=== PATIENT | male | born 1970 | race American Indian/Alaskan Native ===

== ENCOUNTER 2016-09-16 11:30 | Inpatient (IN) | payer OTHER ==
[2016-09-08 15:33] VITALS: BMI 31.2
[2016-09-30] MEDS ORDERED: BUPIVACAINE HCL/PF 2.5 MG/ML - 30 ML VIAL IJ ONE (07:01)
[2016-09-30] MEDS ORDERED: THROMBIN (BOVINE) 5,000 UNIT VIAL TP ONE (07:01)
[2016-09-30] MEDS ORDERED: EPINEPHrine 1:1,000 1 MG/1 ML - 30ML VIAL (INJECTION) ONE (07:02)
[2016-09-30] MEDS ORDERED: LIDOCAINE 1%/EPI 1:100000 (20 ML MULTI DOSE VIAL) ONE (07:03)
[2016-09-30] MEDS ORDERED: oxyCODONE HCL 10 MG SUSTAINED ACTING TABLET PO ONE (07:43)
--- NOTE | 2016-09-30 08:01 | HP ---
History & Physical Update - History History: No Change - Physical Physical: No Change - Assessment Assessment: No Change - Plan Plan: No Change
[2016-09-30] MEDS ORDERED: MIDAZOLAM HCL 2 MG/2 ML SINGLE DOSE VIAL ONE ×3 (08:18→10:05)
[2016-09-30] MEDS ORDERED: BUPIVACAINE HCL/PF 0.5% (5MG/ML) 10 ML VIAL ONE (08:22)
[2016-09-30] MEDS ORDERED: ceFAZolin SODIUM 1 GM VIAL ONE (08:53)
[2016-09-30] MEDS ORDERED: LIDOCAINE 1%/EPI 1:100000 (50 ML MULTI DOSE VIAL) INF ONE (09:05)
[2016-09-30] MEDS ORDERED: BUPIVACAINE HCL/PF 0.25% (2.5MG/ML) 10 ML VIAL IJ ONE (10:50)
[2016-09-30] MEDS ORDERED: ONDANSETRON 4 MG/2 ML VIAL IVPB PRN (11:33)
[2016-09-30] MEDS ORDERED: CYCLOBENZAPRINE HCL 10 MG TABLET (FP) PO PRN (11:33)
[2016-09-30] MEDS ORDERED: ACETAMINOPHEN 325 MG TABLET (FP) PO PRN (11:33)
[2016-09-30] MEDS ORDERED: ACETAMINOPHEN 1000 MG/100 ML VIAL (NON FORMULARY) IVPB PRN (11:33)
[2016-09-30] MEDS ORDERED: oxyCODONE HCL 5 MG TABLET PO PRN (11:33)
[2016-09-30] MEDS ORDERED: INSULIN (NOVOLOG) ASPART 100 UNITS/ML 10ML VIAL ONE ×3 (11:45→21:02)
[2016-09-30] MEDS ORDERED: INSULIN SLIDING SCALE (NOVOLOG) 1 VIAL SQ ONE (11:50)
[2016-09-30] MEDS ORDERED: ACETAMINOPHEN 1000 MG/100 ML VIAL (NON FORMULARY) IVPB ONE (12:00)
[2016-09-30] MEDS ORDERED: diazePAM 2 MG TABLET PO ONE ×2 (12:00)
[2016-09-30] MEDS ORDERED: traMADol HCL 50 MG TABLET PO ONE (12:00)
[2016-09-30] MEDS ORDERED: traMADol HCL 50 MG TABLET PO PRN (12:00)
[2016-09-30] MEDS ORDERED: ONDANSETRON 4 MG/2 ML VIAL IVPUSH PRN (12:27)
--- NOTE | 2016-09-30 12:29 | OP ---
Operative Note - Note: Operative Date: 09/30/16 Pre-Operative Diagnosis: spondylolisthesis Operation: posterior lumbar decompression, instumentation, fusion. Transforaminal lumbar interbody fusion L4-L5 with allograft/neuromonitoring Surgeon: Carson Brown Portable Sawyer: Alta Interiano Anesthesiologist/MAGAZINE DESIGNER: Eleazar Garcia Anesthesia: Spinal Estimated Blood Loss (mls): 20 Fluid Volume Replaced (mls): 700 Operative Report Dictated: Yes
--- NOTE | 2016-09-30 12:30 | SURG ---
Surgery Gmat Instructor Note Gmat Instructor: Alta Interiano PA-C Date of Service: 09/30/16 Diagnosis: lumbar spondylolisthesis Procedure: posterior lumbar decompression, instumentation, fusion. Transforaminal lumbar interbody fusion L4-L5 with allograft/neuromonitoring I was present for the entirety of the operative procedure. For further detail, please refer to operative report. Visit type - Case Type Case Type: Scheduled Admission - Emergency Emergency Visit: No - New patient This patient is new to me today: Yes Date on this admission: 09/30/16 - Critical Care Critical Care patient: No
[2016-09-30] MEDS ORDERED: SODIUM CHLORIDE 1,000 ML IV SCH (12:45)
[2016-09-30] MEDS: oxyCODONE HCL 5 MG TABLET PO PRN ×2 (14:32→17:48)
[2016-09-30] MEDS: glipiZIDE 5 MG TABLET (FP) PO SCH (16:43)
[2016-09-30] MEDS: INSULIN SLIDING SCALE (NOVOLOG) 1 VIAL SQ SCH ×2 (16:52→21:05)
[2016-09-30] MEDS: ACETAMINOPHEN 325 MG TABLET (FP) PO SCH ×2 (17:49→23:48)
[2016-09-30] MEDS ORDERED: KETOROLAC TROMETHAMINE 30 MG/1 ML VIAL IVPUSH PRN (18:00)
[2016-09-30] MEDS: CYCLOBENZAPRINE HCL 10 MG TABLET (FP) PO SCH (21:05)
[2016-09-30] MEDS: DOCUSATE SODIUM 100 MG CAPSULE (FP) PO SCH (21:05)
[2016-09-30] MEDS ORDERED: ATORVASTATIN CA 10 MG TABLET (FP) PO SCH (22:00)
[2016-10-01] MEDS: oxyCODONE HCL 5 MG TABLET PO PRN ×2 (05:22→12:15)
[2016-10-01] MEDS: ACETAMINOPHEN 325 MG TABLET (FP) PO SCH ×2 (05:23→12:15)
[2016-10-01 05:55] VITALS: TEMP 97.9
[2016-10-01] MEDS ORDERED: INSULIN (NOVOLOG) ASPART 100 UNITS/ML 10ML VIAL ONE (06:33)
[2016-10-01] MEDS: glipiZIDE 5 MG TABLET (FP) PO SCH (06:39)
[2016-10-01] MEDS: INSULIN SLIDING SCALE (NOVOLOG) 1 VIAL SQ SCH ×2 (06:40→12:16)
[2016-10-01] MEDS ORDERED: sitaGLIPtin PHOSPHATE 50 MG TABLET PO SCH (07:00)
[2016-10-01 07:58] LABS: ANION GAP 6 (8-16); CALCIUM 8.9 mg/dl (8.4-10.2); CO2 27 mmol/L (22-28); GLUCOSE,RANDOM 257 mg/dl (74-106)
[2016-10-01 08:03] LABS: MCH 26.7 pg (25.7-33.7); MCHC 33.8 g/dl (32.0-35.9); MEAN PLT VOLUME 7.7 fl (7.5-11.1); PLATELET COUNT 211 K/MM3 (134-434); RDW 12.5 % (11.9-15.9); WHITE BLOOD COUNT 7.9 K/mm3 (4.0-10.8)
--- NOTE | 2016-10-01 09:09 | PN ---
Progress Note (short form) - Note Progress Note: ANESTHESIOLOGY POST-OP CHECK 45M s/p posterior lumbart fusion under spinal anesthesia POD #1. No acute complaints. Ambulating, voiding, tolerating PO. Denies N/V, numbness, weakness. pain 5/10 and tolerable. Vital Signs Temperature 97.9 F 10/01/16 05:54 Pulse Rate 95 H 10/01/16 05:54 Respiratory Rate 19 10/01/16 05:54 Blood Pressure 158/85 10/01/16 05:54 O2 Sat by Pulse Oximetry (%) 98 10/01/16 05:54 Active Medications Acetaminophen (Ofirmev Injection -) 1,000 mg IVPB PRN PRN PRN Reason: If narcotics are ineffective Stop: 10/01/16 11:32 Last Admin: 09/30/16 16:50 Dose: 1,000 mg Acetaminophen (Tylenol -) 650 mg PO Q6H [facility] Last Admin: 10/01/16 05:23 Dose: 650 mg Atorvastatin Calcium (Lipitor -) 10 mg PO HS [facility] Last Admin: 09/30/16 21:05 Dose: 10 mg Cyclobenzaprine HCl (Flexeril -) 10 mg PO BID [facility] Stop: 10/01/16 21:59 Last Admin: 09/30/16 21:05 Dose: 10 mg Docusate Sodium (Colace -) 100 mg PO BID [facility] Last Admin: 09/30/16 21:05 Dose: 100 mg Fentanyl (Sublimaze Injection -) 50 mcg IVPUSH [id number] PRN PRN Reason: PAIN Stop: 10/03/16 12:28 Glipizide (Glucotrol -) 10 mg PO BIDI [facility] Last Admin: 10/01/16 06:39 Dose: 10 mg Sodium Chloride (Normal Saline -) 1,000 mls @ 100 mls/hr IV ASDIR [facility] Insulin Aspart (Novolog Vial Sliding Scale -) 1 vial SQ ACHS [facility] PRN Reason: Protocol Last Admin: 10/01/16 06:40 Dose: 4 unit Lisinopril (Prinivil) 5 mg PO DAILY [facility] Metformin HCl (Glucophage -) 850 mg PO TIDAC [facility] Last Admin: 10/01/16 06:39 Dose: 850 mg Ondansetron HCl (Zofran Injection) 4 mg IVPB Q6H PRN PRN Reason: NAUSEA AND/OR VOMITING Oxycodone HCl (Roxicodone -) 10 mg PO Q4H PRN PRN Reason: PAIN LEVEL 6-10 Last Admin: 10/01/16 05:22 Dose: 10 mg Oxycodone HCl (Roxicodone -) 5 mg PO Q4H PRN PRN Reason: PAIN LEVEL 1-5 Sitagliptin Phosphate (Januvia -) 50 mg PO ACBK [facility] Last Admin: 10/01/16 06:39 Dose: 50 mg Tramadol HCl (Ultram -) 50 mg PO Q6H PRN Last Admin: 10/01/16 08:15 Dose: 50 mg Gen: Awake, alert No apparent anesthesia complications, pain well controlled. Continue management as per primary team.
[2016-10-01] MEDS: DOCUSATE SODIUM 100 MG CAPSULE (FP) PO SCH (09:10)
[2016-10-01] MEDS: CYCLOBENZAPRINE HCL 10 MG TABLET (FP) PO SCH (09:10)
[2016-10-01] MEDS ORDERED: LISINOPRIL 5 MG TABLET (FP) PO SCH (10:00)
[2016-10-01] MEDS ORDERED: PATIENT'S OWN MEDICATION (NON-FORMULARY) (Simvastatin [Simvastatin] 10 MG) PO SCH (10:00)
[2016-10-01 10:41] VITALS: BP 155/75; PULSE 105
[2016-10-01 10:52] LABS: URINE APPEARANCE Clear; URINE BILIRUBIN Negative (NEGATIVE); URINE BLOOD 1+ (NEGATIVE); URINE COLOR YELLOW; URINE GLUCOSE (UA) 2+ (NEGATIVE); URINE KETONE Negative (NEGATIVE); URINE LEUK ESTERASE Negative (NEGATIVE); URINE NITRITE Negative (NEGATIVE); URINE PROTEIN Negative (NEGATIVE); URINE UROBILINOGEN 0.2 (0.2-1.0)
--- NOTE | 2016-10-01 13:02 | DS ---
Physical Exam: SUBJECTIVE: Patient seen and examined, he states that his right leg pain has improved. He is oob and ambulating. Tolerated a regular diet. Voiding on his own. He has no dysruia or obvious bloody urine but states that after he voids he wiped some blood. OBJECTIVE: Vital Signs Temperature 97.9 F 10/01/16 05:54 Pulse Rate 105 H 10/01/16 10:00 Respiratory Rate 18 10/01/16 10:00 Blood Pressure 155/75 10/01/16 10:00 O2 Sat by Pulse Oximetry (%) 98 10/01/16 05:54 PHYSICAL EXAM GENERAL: The patient is awake, alert, and fully oriented, in no acute distress. HEAD: Normal with no signs of trauma. LUNGS: Breath sounds equal, clear to auscultation bilaterally, no wheezes, no crackles, no accessory muscle use. HEART: Regular rate and rhythm, S1, S2 without murmur, rub or gallop. BACK: Dressing c/d/i. No ecchymosis or masses noted. ABDOMEN: Soft, nontender, nondistended, no guarding. EXTREMITIES: warm, well-perfused, no edema. NEUROLOGICAL: Normal speech, gait not observed. 5/5 dorsi/plantar/EHL flexion 5/ 5 b/l PSYCH: Normal mood, normal affect. LABS CBC,CMP WBC 7.9 K/mm3 (4.0-10.8) 10/01/16 07:22 RBC 4.74 M/mm3 (4.00-5.60) 10/01/16 07:22 Hgb 12.7 GM/dl (11.7-16.9) 10/01/16 07:22 Hct 37.5 % (35.4-49) 10/01/16 07:22 MCV 79.0 fl (80-96) L 10/01/16 07:22 MCH 26.7 pg (25.7-33.7) 10/01/16 07:22 MCHC 33.8 g/dl (32.0-35.9) 10/01/16 07:22 RDW 12.5 % (11.9-15.9) 10/01/16 07:22 Plt Count 211 K/MM3 (134-434) 10/01/16 07:22 MPV 7.7 fl (7.5-11.1) 10/01/16 07:22 Sodium 132 mmol/L (136-145) L 10/01/16 07:22 Potassium 4.2 mmol/L (3.5-5.1) 10/01/16 07:22 Chloride 99 mmol/L (98-107) 10/01/16 07:22 Carbon Dioxide 27 mmol/L (22-28) 10/01/16 07:22 Anion Gap 6 (8-16) L 10/01/16 07:22 BUN 17 mg/dl (7-18) 10/01/16 07:22 Creatinine 1.0 mg/dl (0.6-1.3) 10/01/16 07:22 POC Glucometer 229 UNITS (()) 10/01/16 11:24 Random Glucose 257 mg/dl (74-106) H 10/01/16 07:22 Calcium 8.9 mg/dl (8.4-10.2) 10/01/16 07:22 Laboratory Tests 10/01/16 10:09 Urine Color Yellow Urine Appearance Clear Urine pH 6.0 Ur Specific [place] 1.010 Urine Protein Negative Urine Glucose (UA) 2+ H Urine Ketones Negative Urine Blood 1+ H Urine Nitrite Negative Urine Bilirubin Negative Urine Urobilinogen 0.2 Ur Leukocyte Esterase Negative HOSPITAL COURSE: Date of Admission:09/30/16 Date of Discharge: 10/01/16 The patient was admitted to the Med-Surg Unit after an elective repair of their spondylolisthesis. Now, s/p L4-L5 lumbar posterior decompression with interbody fusion. The day of surgery, the patient ambulated the hallways with assistance. Narcotic and non-narcotic pain management control was achieved with an oral and IV approach. An xray was obtained and confirmed hardware placement at L4-L5, no fractures or dislocations. Grecia-operative IV ABX were administered. DVT prophylaxis was achieved with SCDs and early ambulation. The patient ambulated with Physical Therapy and no services were recommended upon discharge. Narcotic scripts and or muscle relaxants were checked with [place] TIME CYCLE OPERATOR prior to escibe. The discharge instructions and an oral pain management plan were reviewed with the patient. All questions answered. Above plan discussed with Dr. Brown and agreed. Minutes to complete discharge: 30 <Alta Interiano - Last Filed: 10/01/16 13:40> Physical Exam: SUBJECTIVE: Patient seen and examined OBJECTIVE: Vital Signs Temperature 97.9 F 10/01/16 05:54 Pulse Rate 105 H 10/01/16 10:00 Respiratory Rate 18 10/01/16 10:00 Blood Pressure 155/75 10/01/16 10:00 O2 Sat by Pulse Oximetry (%) 98 10/01/16 05:54 PHYSICAL EXAM GENERAL: The patient is awake, alert, and fully oriented, in no acute distress. HEAD: Normal with no signs of trauma. EYES: PERRL, extraocular movements intact, sclera anicteric, conjunctiva clear. ENT: Ears normal, nares patent, oropharynx clear without exudates, moist mucous membranes. NECK: Trachea midline, full range of motion, supple. LUNGS: Breath sounds equal, clear to auscultation bilaterally, no wheezes, no crackles, no accessory muscle use. HEART: Regular rate and rhythm, S1, S2 without murmur, rub or gallop. ABDOMEN: Soft, nontender, nondistended, normoactive bowel sounds, no guarding, no rebound, no hepatosplenomegaly, no masses. EXTREMITIES: 2+ pulses, warm, well-perfused, no edema. NEUROLOGICAL: Cranial nerves II through XII grossly intact. Normal speech, gait not observed. PSYCH: Normal mood, normal affect. SKIN: Warm, dry, normal turgor, no rashes or lesions noted. LABS CBC,CMP WBC 7.9 K/mm3 (4.0-10.8) 10/01/16 07:22 RBC 4.74 M/mm3 (4.00-5.60) 10/01/16 07:22 Hgb 12.7 GM/dl (11.7-16.9) 10/01/16 07:22 Hct 37.5 % (35.4-49) 10/01/16 07:22 MCV 79.0 fl (80-96) L 10/01/16 07:22 MCH 26.7 pg (25.7-33.7) 10/01/16 07:22 MCHC 33.8 g/dl (32.0-35.9) 10/01/16 07:22 RDW 12.5 % (11.9-15.9) 10/01/16 07:22 Plt Count 211 K/MM3 (134-434) 10/01/16 07:22 MPV 7.7 fl (7.5-11.1) 10/01/16 07:22 Sodium 132 mmol/L (136-145) L 10/01/16 07:22 Potassium 4.2 mmol/L (3.5-5.1) 10/01/16 07:22 Chloride 99 mmol/L (98-107) 10/01/16 07:22 Carbon Dioxide 27 mmol/L (22-28) 10/01/16 07:22 Anion Gap 6 (8-16) L 10/01/16 07:22 BUN 17 mg/dl (7-18) 10/01/16 07:22 Creatinine 1.0 mg/dl (0.6-1.3) 10/01/16 07:22 POC Glucometer 229 UNITS (()) 10/01/16 11:24 Random Glucose 257 mg/dl (74-106) H 10/01/16 07:22 Calcium 8.9 mg/dl (8.4-10.2) 10/01/16 07:22 HOSPITAL COURSE: Date of Admission:09/30/16 Date of Discharge: 10/05/16 The patient was admitted to the Med-Surg Unit after an elective repair of their (problem). Now, s/p ( procedure ). The day of surgery, the patient ambulated the hallways with assistance. Narcotic and non-narcotic pain management control was achieved with an oral and IV approach. POD #1, the surgical drain was removed fully intact and without incident. An xray was obtained and confirmed hardware placement at (level of ), no fractures or dislocations. Grecia-operative IV ABX were administered. DVT prophylaxis was achieved with SCDs and early ambulation. The patient ambulated with Physical Therapy and no services were recommended upon discharge. Narcotic scripts and or muscle relaxants were checked with [facility] TIME CYCLE OPERATOR prior to escibe. The discharge instructions and an oral pain management plan were reviewed with the patient. All questions answered. Above plan discussed with Dr. Brown and agreed. Patient seen and examined Agree with above D/C Planning <Carson Brown - Last Filed: 10/05/16 08:04> Visit type - Case Type Case Type: Scheduled Admission - Emergency Emergency Visit: No - New patient This patient is new to me today: No - Critical Care Critical Care patient: No <Alta Interiano - Last Filed: 10/01/16 13:40>
[2016-10-01 20:14] LABS: URINE BACTERIA NONE SEEN /hpf (NEGATIVE); URINE WBC 0-2 (3-5)
--- NOTE | 2016-10-02 19:35 | OP ---
DATE OF OPERATION: 09/30/2016 PREOPERATIVE DIAGNOSES: 1. Spinal stenosis, L4-5. 2. Degenerative disk disease. POSTOPERATIVE DIAGNOSES: 1. Spinal stenosis, L4-5. 2. Degenerative disk disease. PROCEDURE PERFORMED: 1. Transforaminal lumbar interbody fusion, L4-5. 2. Placement of interbody cage. 3. Placement of instrumentation. 4. Hemilaminectomy. SURGEON: Carson Brown MD PATIENT FINANCIAL SERVICES MANAGER: GAVI Bailey ESTIMATED BLOOD LOSS: 50 mL INTRAVENOUS FLUIDS: Per Anesthesia. ANESTHESIA: Spinal. DISPOSITION: Patient brought to the PACU in stable condition. INDICATION FOR SURGERY: The patient is a 45-year-old gentleman who has been suffering from pain from his back down his right leg. X-rays and MRI were completed which noted that he had spinal stenosis at L4-5 secondary to degenerative disk disease. He had gone through an exhaustive course of treatment for this which included medications, physical therapy, as well as injections. Unfortunately, his pain continued to persist despite all this. At this point, risks, benefits, and alternatives were discussed, and the patient consented to surgery. DESCRIPTION OF PROCEDURE: Patient was brought to the operating room by the anesthesia staff. After appropriate patient identification was performed, spinal anesthesia was given. He was placed prone onto a Sami frame. The patient was able to position himself to avoid bony prominences. The C-arm was brought in, and the L4 and L5 pedicles were marked off. Next, 10 mL of lidocaine with epinephrine were injected into his back at this time. His back was prepped and draped in a sterile manner. At this point, timeout was completed. Incisions were made bilaterally over the L4 and L5 pedicles. Dissection was carried down to the fascia. The fascia was then split open at this time. C-arm was brought in, and trocars were advanced into both the L4 and L5 pedicles. Through the trocars, a wire was inserted. Over the wire, a tap was performed, and screws were inserted. On the right-hand side, retractor blades were set up to expose the L4-5 facet joint. This was confirmed with an osteotome. Using a bur, the facet was removed. The disk space was entered. Using a series of pituitaries and Kerrisons and curettes, a diskectomy was completed. A bone graft was laid down at this time. A cage filled with bone graft was placed in, and tulip heads were placed on the screws. Road was measured and placed in. Caps were placed on. Compression and final tightening were performed. On the left-hand side, a nick was measured and placed in. Caps were placed on. Compression and final tightening were performed. All extra instrumentation was removed at this time. AP and lateral x-rays confirmed the instrumentation to be in good position. The fascia was closed with a No. 1 Vicryl suture. The subcutaneous tissues were closed with 2-0 Vicryl suture. Skin was closed with 3-0 Monocryl suture. Dermabond was applied. Steri-Strips were applied. A sterile dressing was applied. The patient was placed supine on the OR bed and brought to the PACU in stable condition. Julio DOMINGUEZ/[id number] MTDD
== END 2016-10-01 14:25 | disposition home or self-care (01) | DRG 304 ==
LOC: FM/S 09-30 06:54
PROVIDERS: ADMIT Orthopaedic Surgery Orthopaedic Surgery of the Spine; ATTEND Orthopaedic Surgery Orthopaedic Surgery of the Spine
PROC: 0SG00AJ Fusion of Lumbar Vertebral Joint with Interbody Fusion Device, Posterior Approach, Anterior Column, Open Approach (ICD-10-PCS; principal; 2016-09-30 09:22)
DX: M51.36 Other intervertebral disc degeneration, lumbar region (principal); M43.16 Spondylolisthesis, lumbar region; M48.06 Spinal stenosis, lumbar region
CPT/HCPCS: 36415; 72100-TC; 80048; 81003; 81015; 85027; 94010; 94760; 97116-GP; 97162-GP

== ENCOUNTER 2022-02-26 09:06 | Emergency (ER) | payer OTHER ==
[2022-02-26 09:14] VITALS: BP 184/86; PULSE 88; RESP 18; TEMP 98; BMI 30.1
[2022-02-26] MEDS ORDERED: KETOROLAC TROMETHAMINE 30 MG/1 ML VIAL IM ONE (09:27)
[2022-02-26] MEDS ORDERED: METHOCARBAMOL 500 MG TABLET PO ONE (09:27)
[2022-02-26] MEDS ORDERED: METHOCARBAMOL 500 MG TABLET ONE ×2 (10:16→10:17)
[2022-02-26] MEDS ORDERED: KETOROLAC TROMETHAMINE 30 MG/1 ML VIAL ONE ×2 (10:16)
== END 2022-02-26 10:44 | disposition home or self-care (01) ==
LOC: JERFT 09:06
PROC: 3E023GC Introduction of Other Therapeutic Substance into Muscle, Percutaneous Approach (ICD-10-PCS; principal; 2022-02-26)
DX: M54.16 Radiculopathy, lumbar region (principal)
CPT/HCPCS: 72100-TC-FY; 99284-25

== ENCOUNTER 2022-03-23 09:53 | Emergency (ER) | payer OTHER ==
[2022-03-23 10:02] VITALS: TEMP 98.3; BMI 25.3
[2022-03-23] MEDS ORDERED: ACETAMINOPHEN 325 MG TABLET (FP) PO ONE (10:51)
[2022-03-23] MEDS ORDERED: ACETAMINOPHEN 325 MG TABLET (FP) ONE (11:08)
[2022-03-23 11:26] LABS: BASO % 0.6 % (0-2.0); EOS % 2.9 % (0-4.5); HEMATOCRIT 44.6 % (35.4-49); HEMOGLOBIN 14.5 GM/dL (11.7-16.9); LYMPH % 37.1 % (8-40); MCHC 32.5 g/dl (32.0-35.9); MEAN CELL VOLUME 79.9 fl (80-96); MEAN PLT VOLUME 7.2 fl (7.5-11.1); MONO % 8.5 % (3.8-10.2); NEUT % 50.9 % (42.8-82.8); PLATELET COUNT 281 10^3/uL (134-434); RBC 5.58 M/mm3 (4.00-5.60); RDW 13.7 % (11.9-15.9)
[2022-03-23] MEDS ORDERED: KETOROLAC TROMETHAMINE 15 MG/ML VIAL IVPUSH ONE (11:35)
[2022-03-23 11:49] LABS: CALCIUM 9.7 mg/dL (8.5-10.1)
[2022-03-23 11:50] LABS: ALBUMIN 4.1 g/dl (3.4-5.0); BLOOD UREA NITROGEN 18.5 mg/dL (7-18); MAGNESIUM 2.1 mg/dL (1.8-2.4)
[2022-03-23 11:53] LABS: CREATININE 0.9 mg/dL (0.55-1.3)
[2022-03-23 11:55] LABS: BILIRUBIN,TOTAL 0.4 mg/dL (0.2-1); TOT PROT 7.6 g/dl (6.4-8.2)
[2022-03-23] MEDS ORDERED: KETOROLAC TROMETHAMINE 15 MG/ML VIAL ONE (12:06)
[2022-03-23 15:37] VITALS: BP 150/85; PULSE 83; RESP 18
== END 2022-03-23 15:37 | disposition home or self-care (01) ==
LOC: JER 09:53
PROC: 3E0333Z Introduction of Anti-inflammatory into Peripheral Vein, Percutaneous Approach (ICD-10-PCS; principal; 2022-03-23)
DX: M50.90 Cervical disc disorder, unspecified, unspecified cervical region (principal)
CPT/HCPCS: 36415; 72125-TC; 80053; 83735; 84484; 85025; 93005; 93010; 99285-25

== ENCOUNTER 2022-07-16 07:15 | Emergency (ER) | payer OTHER ==
[2022-07-16] MEDS ORDERED: ASPIRIN 81 MG CHEWABLE TABLETS PO ONE (07:21)
[2022-07-16] MEDS ORDERED: ASPIRIN 81 MG CHEWABLE TABLETS ONE (07:42)
[2022-07-16 07:49] VITALS: TEMP 98.1; BMI 25.8
[2022-07-16 07:53] LABS: EOS % 2.1 % (0-4.5); HEMATOCRIT 46.7 % (35.4-49); HEMOGLOBIN 15.8 GM/dL (11.7-16.9); LYMPH % 36.8 % (8-40); MCH 27.1 pg (25.7-33.7); MCHC 33.9 g/dl (32.0-35.9); MEAN PLT VOLUME 7.4 fl (7.5-11.1); MONO % 9.8 % (3.8-10.2); NEUT % 50.3 % (42.8-82.8); PLATELET COUNT 236 10^3/uL (134-434); RBC 5.84 M/mm3 (4.00-5.60); RDW 13.6 % (11.9-15.9); WHITE BLOOD COUNT 5.6 K/mm3 (4.0-10.0)
[2022-07-16 07:59] LABS: INR 1.07 (0.83-1.09); PROTHROMBIN TIME (PATIENT) 12.4 SEC (9.7-13.0)
[2022-07-16 08:01] LABS: ACTIVATED PTT 33.8 SECONDS (25.2-36.5)
[2022-07-16 08:15] LABS: CALCIUM 9.4 mg/dL (8.5-10.1)
[2022-07-16 08:16] LABS: ALBUMIN 4.2 g/dl (3.4-5.0); BLOOD UREA NITROGEN 18.6 mg/dL (7-18); MAGNESIUM 2.3 mg/dL (1.8-2.4)
[2022-07-16 08:19] LABS: CREATININE 1.2 mg/dL (0.55-1.3)
[2022-07-16 08:20] LABS: BILIRUBIN,TOTAL 0.6 mg/dL (0.2-1)
[2022-07-16] MEDS ORDERED: ACETAMINOPHEN 500 MG TABLET (FP) PO ONE (08:44)
[2022-07-16] MEDS ORDERED: LIDOCAINE 5% TOPICAL PATCH TP ONE (08:44)
[2022-07-16] MEDS ORDERED: ACETAMINOPHEN 325 MG TABLET (FP) ONE (09:00)
[2022-07-16] MEDS ORDERED: LIDOCAINE 5% TOPICAL PATCH ONE (09:01)
[2022-07-16 09:11] VITALS: BP 134/84; PULSE 88; RESP 14
[2022-07-16] MEDS ORDERED: KETOROLAC TROMETHAMINE 15 MG/ML VIAL IVPUSH ONE (09:46)
[2022-07-16] MEDS ORDERED: SODIUM CHLORIDE 0.9% 500 ML INFUS.BAG IV ONE (09:50)
[2022-07-16] MEDS ORDERED: LIDOCAINE PATCH REMOVAL MC SCH (22:00)
== END 2022-07-16 10:50 | disposition home or self-care (01) ==
LOC: JER 07:15
PROC: 3E033GC Introduction of Other Therapeutic Substance into Peripheral Vein, Percutaneous Approach (ICD-10-PCS; principal; 2022-07-16)
DX: R07.9 Chest pain, unspecified (principal); R00.2 Palpitations
CPT/HCPCS: 36415; 71046-TC-FY; 80053; 82550; 82962; 83735; 84439; 84443; 84484; 85025; 85379; 85610; 85730; 93005; 93010; 99285-25

== ENCOUNTER 2023-08-13 10:20 | Emergency (ER) | payer OTHER ==
[2023-08-13 10:29] VITALS: BP 137/85; PULSE 84; RESP 18; TEMP 98.5; BMI 26.6
[2023-08-13] MEDS ORDERED: LIDOCAINE 4% PATCH TP ONE (11:17)
[2023-08-13] MEDS ORDERED: ACETAMINOPHEN 500 MG TABLET (FP) ONE (11:18)
[2023-08-13] MEDS: LIDOCAINE 4% PATCH TP ONE (11:25)
[2023-08-13] MEDS: ACETAMINOPHEN 500 MG TABLET (FP) PO ONE (11:25)
[2023-08-13] MEDS ORDERED: oxyCODONE HCL 5 MG TABLET ONE (12:58)
[2023-08-13] MEDS: oxyCODONE HCL 5 MG TABLET PO ONE (12:59)
[2023-08-13] MEDS ORDERED: LIDOCAINE PATCH REMOVAL MC SCH (22:00)
== END 2023-08-13 13:00 | disposition home or self-care (01) ==
LOC: JER 10:20 → JERFT 10:20
DX: M54.50 Low back pain, unspecified (principal)
CPT/HCPCS: 72100-TC-FY; 99283-25